=== PATIENT | female | born 1965 | race Caucasian/White ===

== ENCOUNTER 2024-06-05 11:36 | Day surgery (SDC) | payer OTHER ==
[2024-05-31 14:54] VITALS: BMI 20.2
[2024-06-05 13:53] VITALS: PULSE 84; RESP 18; TEMP 97
[2024-06-05 14:23] VITALS: BP 92/45
== END 2024-06-05 14:23 | disposition home or self-care (01) ==
LOC: FASU-ENDO 11:36
PROVIDERS: ATTEND Internal Medicine Gastroenterology
PROC: 0DBL8ZX Excision of Transverse Colon, Via Natural or Artificial Opening Endoscopic, Diagnostic (ICD-10-PCS; 2024-06-05)
PROC: 0DBN8ZX Excision of Sigmoid Colon, Via Natural or Artificial Opening Endoscopic, Diagnostic (ICD-10-PCS; 2024-06-05)
PROC: 0DBP8ZX Excision of Rectum, Via Natural or Artificial Opening Endoscopic, Diagnostic (ICD-10-PCS; 2024-06-05)
PROC: 0DBM8ZX Excision of Descending Colon, Via Natural or Artificial Opening Endoscopic, Diagnostic (ICD-10-PCS; 2024-06-05)
PROC: 0DBH8ZX Excision of Cecum, Via Natural or Artificial Opening Endoscopic, Diagnostic (ICD-10-PCS; 2024-06-05)
PROC: 0DBK8ZX Excision of Ascending Colon, Via Natural or Artificial Opening Endoscopic, Diagnostic (ICD-10-PCS; principal; 2024-06-05 13:21)
DX: Z12.11 Encounter for screening for malignant neoplasm of colon (principal); K64.1 Second degree hemorrhoids; K64.8 Other hemorrhoids; Z87.19 Personal history of other diseases of the digestive system
CPT/HCPCS: 88305-TC

== ENCOUNTER 2024-12-29 10:20 | Emergency (ER) | payer OTHER ==
[2024-12-29 10:36] VITALS: BP 111/60; PULSE 84; RESP 18; TEMP 98; BMI 21.4
[2024-12-29] MEDS ORDERED: LIDOCAINE 4% PATCH TP ONE (12:21)
[2024-12-29] MEDS: LIDOCAINE 4% PATCH TP ONE (12:31)
== END 2024-12-29 12:35 | disposition home or self-care (01) ==
LOC: JERFT 10:20
DX: M25.511 Pain in right shoulder (principal); M25.521 Pain in right elbow; M54.6 Pain in thoracic spine; V49.50XA Passenger injured in collision with unspecified motor vehicles in traffic accident, initial encounter; Y92.410 Unspecified street and highway as the place of occurrence of the external cause
CPT/HCPCS: 99283-25

== ENCOUNTER 2025-03-01 11:16 | Emergency (ER) | payer OTHER ==
[2025-03-01 11:27] VITALS: BP 110/71; PULSE 85; RESP 16; TEMP 98.6; BMI 21.4
[2025-03-01] MEDS ORDERED: MECLIZINE HCL 25 MG TABLET (FP) ONE (12:41)
[2025-03-01] MEDS ORDERED: ONDANSETRON 4 MG/2 ML VIAL ONE (12:41)
[2025-03-01] MEDS: MECLIZINE HCL 25 MG TABLET (FP) PO ONE (12:55)
[2025-03-01] MEDS: ONDANSETRON 4 MG/2 ML VIAL IVPUSH ONE (13:00)
[2025-03-01] MEDS: SODIUM CHLORIDE 0.9% 500 ML INFUS.BAG IV ONE (13:00)
[2025-03-01 13:37] LABS: ALBUMIN 4.6 g/dl (3.4-5.0); BILIRUBIN,TOTAL 1.1 mg/dl (0.2-1); CALCIUM 9.4 mg/dl (8.5-10.1); CREATININE 0.7 mg/dl (0.6-1.3); MAGNESIUM 1.8 mg/dL (1.8-2.4); POTASSIUM 4.1 mmol/L (3.5-5.1); TOT PROT 7.5 g/dl (6.4-8.2)
[2025-03-01 15:11] LABS: ABSOLUTE IMMATURE GRANULOCYTES 0.03 x10^3/uL (0.0-0.031); BASOPHILS # 0.02 x10^3/uL (0.01-0.08); EOSINOPHIL % 0.7 % (0.7-5.8); EOSINOPHILS # 0.05 x10^3/uL (0.04-0.36); HEMATOCRIT 41.1 % (34.1-44.9); MCHC 34.1 g/dl (32.2-35.5); MEAN CELL VOLUME 94.7 fl (79.4-94.8); MEAN PLT VOLUME 10.3 fl (9.4-12.3); MONOCYTE # 0.44 x10^3/uL (0.24-0.86); MONOCYTE % 5.9 % (4.7-12.5); PLATELET COUNT 231 x10^3/uL (182-369); RDW 12.3 % (12.3-16.6)
== END 2025-03-01 16:16 | disposition home or self-care (01) ==
LOC: FER 11:16
PROC: 3E033GC Introduction of Other Therapeutic Substance into Peripheral Vein, Percutaneous Approach (ICD-10-PCS; principal; 2025-03-01)
DX: R42 Dizziness and giddiness (principal); R11.0 Nausea; R07.89 Other chest pain
CPT/HCPCS: 36415; 71046-TC-FY; 80053; 83735; 84484; 85025; 86803; 93005; 99285-25